=== PATIENT | female | born 1985 | race Caucasian/White ===

== ENCOUNTER → 2017-03-28 | Outpatient (CLI) | payer MEDICAID ==
[~2017-03-28] MED LIST: MOTR200T44 PO; PERCOCET PO
== END ==
LOC: M OUTALCOH 07:59
PROVIDERS: ATTEND Psychiatry & Neurology Psychiatry
DX: Z03.89 Encounter for observation for other suspected diseases and conditions ruled out (principal)

== ENCOUNTER → 2017-09-03 | Outpatient (REF) | payer MEDICAID ==
[2017-09-03 17:36] LABS: INFLUENZA A AMPLIFICATION NEGATIVE (NEGATIVE); INFLUENZA B AMPLIFICATION NEGATIVE (NEGATIVE); RSV AMPLIFICATION NEGATIVE (NEGATIVE)
== END ==
LOC: M LAB REF 16:44
DX: J11.1 Influenza due to unidentified influenza virus with other respiratory manifestations (principal)

== ENCOUNTER → 2019-09-29 | Outpatient (REF) | payer MEDICAID, OTHER | LOC: M LAB REF 09:30 | PROVIDERS: ATTEND Physician Assistant | DX: J02.9 Acute pharyngitis, unspecified (principal) ==

== ENCOUNTER → 2021-09-28 | Outpatient (REF) | payer OTHER | LOC: M PLALAB 08:01 | PROVIDERS: ATTEND Advanced Practice Midwife | DX: Z01.419 Encounter for gynecological examination (general) (routine) without abnormal findings (principal); Z12.4 Encounter for screening for malignant neoplasm of cervix ==

== ENCOUNTER 2023-02-03 10:23 | Inpatient (IN) | payer OTHER ==
[~2023-02-03] VITALS: Ht 172.7 cm; Wt 115.9 kg
[~2023-02-03 10:23] MED LIST changes: +AMOX500C PO
[2023-02-03] MEDS ORDERED: NS 1,000 ML IV ONE (11:55)
[2023-02-03] MEDS ORDERED: dexAMETHasone 20MG/5ML VIAL IV ONE (11:55)
[2023-02-03] MEDS ORDERED: ACETAMINOPHEN 1000MG 100ML IV BAG IV ONE (11:55)
[2023-02-03 12:55] LABS: BASO % 0.3 % (0.0-1.0); EOS % 0.4 % (0.0-3.0); HEMATOCRIT 37.1 % (36.0-47.0); HEMOGLOBIN 12.4 g/dl (12.0-15.5); LYMPH # 1.1 10^3/uL (1.5-5.0); MEAN CORPUSCULAR HEMOGLOBIN 30.2 pg (27.0-33.0); MEAN CORPUSCULAR HGB CONC 33.4 g/dl (32.0-36.5); MEAN CORPUSCULAR VOLUME 90.3 fl (80.0-96.0); MONO # 0.7 10^3/uL (0.0-0.8); MONO % 6.8 % (2.0-8.0); NEUTROPHILS # 8.1 10^3/uL (1.5-8.5); NEUTROPHILS % 81.1 % (36.0-66.0); PLATELET COUNT, AUTOMATED 242 10^3/uL (150-450); RED BLOOD COUNT 4.11 10^6/uL (4.00-5.40)
[2023-02-03 13:07] LABS: ERYTHROCYTE SEDIMENTATION RATE 128 mm/hr (0-20)
[2023-02-03 13:17] LABS: BLOOD UREA NITROGEN 7 MG/DL (9-23); CALCIUM LEVEL 8.1 MG/DL (8.5-10.1); CARBON DIOXIDE LEVEL 25 MMOL/L (20-31); CHLORIDE LEVEL 101 MMOL/L (98-107); CREATININE FOR GFR 0.46 MG/DL (0.55-1.30); GLOMERULAR FILTRATION RATE > 60.0 (>60); GLUCOSE, FASTING 92 MG/DL (60-100); POTASSIUM SERUM 3.5 MMOL/L (3.5-5.1); SODIUM LEVEL 136 MMOL/L (136-145)
[2023-02-03 13:19] LABS: HCG, SERUM QUALITATIVE NEGATIVE (NEGATIVE)
[2023-02-03] MEDS ORDERED: ISOVUE-370 76% 100ML VIAL As Ordered ONE (13:28)
[2023-02-03] MEDS ORDERED: AMPICILLIN SOD/SULBACTAM SOD 3 GM in D5W MINI-BAG PLUS 100 ML IV ONE (15:00)
[2023-02-03] MEDS ORDERED: MED REC IN PROGRESS XX SCH (15:05)
[2023-02-03] MEDS ORDERED: BUPR-71 PO (15:15)
[2023-02-03] MEDS ORDERED: HOME MED LIST COMPLETE! XX SCH (15:20)
[2023-02-03] MEDS ORDERED: ACETAMINOPHEN TAB 650MG DOSE (2X325MG) PO PRN (15:25)
[2023-02-03 19:43] LABS: PROCALCITONIN 0.21 ng/ml
[2023-02-03 20:00] VITALS: BP 140/88; TEMP 97.6; O2SAT 98
[2023-02-03] MEDS ORDERED: dexAMETHasone 20MG/5ML VIAL IV SCH (20:00)
[2023-02-03] MEDS: PIPERACILLIN/TAZOBACTAM SOD 3.375 GM in D5W MINI-BAG PLUS 50 ML IV SCH (21:17)
[2023-02-03] MEDS: CHLORHEXIDINE GLUCONATE 0.12 % 15ML UDC (PERIDEX ORAL RINSE) MT SCH (21:17)
[2023-02-03] MEDS: NS 1,000 ML IV SCH (21:17)
[2023-02-04 00:24] VITALS: BP 129/80; TEMP 97.5; O2SAT 96
[2023-02-04] MEDS: PIPERACILLIN/TAZOBACTAM SOD 3.375 GM in D5W MINI-BAG PLUS 50 ML IV SCH ×4 (03:58→19:51)
[2023-02-04 04:35] VITALS: BP 116/76; TEMP 97.3; O2SAT 97
[2023-02-04 05:53] LABS: HEMATOCRIT 37.3 % (36.0-47.0); HEMOGLOBIN 12.3 g/dl (12.0-15.5); MEAN CORPUSCULAR HEMOGLOBIN 30.1 pg (27.0-33.0); MEAN CORPUSCULAR VOLUME 91.2 fl (80.0-96.0); PLATELET COUNT, AUTOMATED 280 10^3/uL (150-450); RED BLOOD COUNT 4.09 10^6/uL (4.00-5.40); WHITE BLOOD COUNT 8.1 10^3/uL (4.0-10.0)
[2023-02-04 06:24] LABS: BLOOD UREA NITROGEN 12 MG/DL (9-23); CARBON DIOXIDE LEVEL 24 MMOL/L (20-31); CHLORIDE LEVEL 105 MMOL/L (98-107); CREATININE FOR GFR 0.48 MG/DL (0.55-1.30); GLOMERULAR FILTRATION RATE > 60.0 (>60); GLUCOSE, FASTING 151 MG/DL (60-100); SODIUM LEVEL 139 MMOL/L (136-145)
[2023-02-04 08:00] VITALS: BP 128/75; TEMP 98.6; O2SAT 95
[2023-02-04] MEDS: CHLORHEXIDINE GLUCONATE 0.12 % 15ML UDC (PERIDEX ORAL RINSE) MT SCH ×2 (09:41→19:51)
[2023-02-04 12:00] VITALS: BP 156/98; TEMP 97.6; O2SAT 98
[2023-02-04] MEDS: buPROPion **SR TABLET** (ZYBAN) 150MG PO SCH (12:00)
[2023-02-04] MEDS: NS 1,000 ML IV SCH ×2 (15:54)
[2023-02-04 20:17] VITALS: BP 152/92; TEMP 98; O2SAT 98
[2023-02-04 23:30] VITALS: BP 146/93; TEMP 97.6; O2SAT 97
[2023-02-05] MEDS: PIPERACILLIN/TAZOBACTAM SOD 3.375 GM in D5W MINI-BAG PLUS 50 ML IV SCH ×2 (03:24→08:36)
[2023-02-05 04:00] VITALS: BP 137/82; TEMP 97.7; O2SAT 96
[2023-02-05 06:15] LABS: BASO % 0.1 % (0.0-1.0); HEMOGLOBIN 11.4 g/dl (12.0-15.5); LYMPH # 1.2 10^3/uL (1.5-5.0); LYMPH % 11.2 % (24.0-44.0); MEAN CORPUSCULAR HEMOGLOBIN 30.6 pg (27.0-33.0); MEAN CORPUSCULAR HGB CONC 33.5 g/dl (32.0-36.5); MEAN CORPUSCULAR VOLUME 91.4 fl (80.0-96.0); MONO # 0.5 10^3/uL (0.0-0.8); MONO % 4.3 % (2.0-8.0); NEUTROPHILS # 8.7 10^3/uL (1.5-8.5); NEUTROPHILS % 83.5 % (36.0-66.0); PLATELET COUNT, AUTOMATED 293 10^3/uL (150-450); RED BLOOD COUNT 3.72 10^6/uL (4.00-5.40); WHITE BLOOD COUNT 10.4 10^3/uL (4.0-10.0)
[2023-02-05 06:38] LABS: BLOOD UREA NITROGEN 10 MG/DL (9-23); CALCIUM LEVEL 8.1 MG/DL (8.5-10.1); CARBON DIOXIDE LEVEL 28 MMOL/L (20-31); CHLORIDE LEVEL 107 MMOL/L (98-107); CREATININE FOR GFR 0.53 MG/DL (0.55-1.30); GLOMERULAR FILTRATION RATE > 60.0 (>60); GLUCOSE, FASTING 147 MG/DL (60-100); POTASSIUM SERUM 3.7 MMOL/L (3.5-5.1); SODIUM LEVEL 142 MMOL/L (136-145)
[2023-02-05 08:00] VITALS: BP 142/87; TEMP 98.4; O2SAT 98
[2023-02-05] MEDS: buPROPion **SR TABLET** (ZYBAN) 150MG PO SCH (08:39)
[2023-02-05] MEDS: CHLORHEXIDINE GLUCONATE 0.12 % 15ML UDC (PERIDEX ORAL RINSE) MT SCH (08:39)
[2023-02-05] MEDS ORDERED: PRED20TA PO (10:45)
[2023-02-05] MEDS ORDERED: AMOX875T2 PO (10:45)
== END 2023-02-05 11:22 | disposition home or self-care (01) | DRG 113 ==
LOC: M ED 10:23 → M PED 15:23 → M ED INP 15:23 → ENRESERV 17:30 → M PCU 19:33 → M PED 02-04 22:34
PROVIDERS: ADMIT Internal Medicine; ATTEND Internal Medicine
DX: J03.90 Acute tonsillitis, unspecified (principal); F32.A Depression, unspecified; K11.21 Acute sialoadenitis; F41.9 Anxiety disorder, unspecified; Z79.2 Long term (current) use of antibiotics; Z79.899 Other long term (current) drug therapy; Z20.822 Contact with and (suspected) exposure to COVID-19

== ENCOUNTER 2025-04-27 20:25 | Emergency (ER) | payer OTHER ==
[~2025-04-27] VITALS: Ht 172.7 cm; Wt 122.7 kg
[~2025-04-27 20:25] MED LIST changes: +AMOX875T2 PO; +BUPR-71 PO; +PRED20TA PO
[2025-04-27 20:35] VITALS: TEMP 98.7
[2025-04-27] MEDS: MORPHINE 4 MG/ML 1 ML VIAL IV ONE (21:03)
[2025-04-27] MEDS: PERCOCET 5MG/325MG TAB PO ONE (21:35)
[2025-04-27 22:00] VITALS: BP 132/78; O2SAT 96
[2025-04-27] MEDS ORDERED: PERC5TAB12 PO (23:22)
[2025-04-27] MEDS: MORPHINE 2 MG/ML 1 ML VIAL IV ONE (23:28)
[2025-04-27] MEDS: OXYCODONE/APAP 5MG/325MG(HOME DOSE PACK) PO ONE (23:28)
[2025-04-28] MEDS ORDERED: FLUO40CA PO (12:00)
[2025-04-28] MEDS ORDERED: CHLO125TA PO (12:00)
[2025-04-28] MEDS ORDERED: LISI5TAB11 PO (12:00)
[2025-04-28] MEDS ORDERED: ALPR0.25 PO (12:00)
== END 2025-04-27 23:48 | disposition home or self-care (01) ==
LOC: M ED 20:25
DX: S52.502A Unspecified fracture of the lower end of left radius, initial encounter for closed fracture (principal); W51.XXXA Accidental striking against or bumped into by another person, initial encounter; Y92.9 Unspecified place or not applicable; Y93.9 Activity, unspecified; Y99.9 Unspecified external cause status; F32.9 Major depressive disorder, single episode, unspecified

== ENCOUNTER 2025-04-29 07:46 | Day surgery (SDC) | payer OTHER ==
[~2025-04-29] VITALS: Ht 172.7 cm; Wt 118.8 kg
[~2025-04-29 07:46] MED LIST changes: +ALPR0.25 PO; +CHLO125TA PO; +FLUO40CA PO; +LISI5TAB11 PO; +PERC5TAB12 PO
[2025-04-29] MEDS ORDERED: LR 1,000 ML IV SCH ×2 (08:15→10:50)
[2025-04-29] MEDS ORDERED: ONDANSETRON 4MG 2ML VIAL As Ordered ONE (08:18)
[2025-04-29] MEDS ORDERED: dexAMETHasone 4 MG/ML 1 ML VIAL As Ordered ONE (08:18)
[2025-04-29] MEDS ORDERED: LIDOCAINE 2% 100 MG/5 ML SDV (FOR ANES.) As Ordered ONE (08:18)
[2025-04-29] MEDS ORDERED: MIDAZOLAM INJ 2 MG/2 ML VIAL As Ordered ONE (08:23)
[2025-04-29] MEDS: MIDAZOLAM INJ 2 MG/2 ML VIAL IV PRN (09:27)
[2025-04-29] MEDS: LIDOCAINE 1% SDV 5 ML VIAL PN ONE (09:39)
[2025-04-29] MEDS: ROPIvacaine 0.5% 30ML VIAL PN ONE (09:40)
[2025-04-29] MEDS ORDERED: OXYC1TAB23 PO (09:49)
[2025-04-29] MEDS ORDERED: ACETAMINOPHEN 1000MG/100ML IV BAG As Ordered ONE (10:03)
[2025-04-29] MEDS ORDERED: HYDROMORPHONE HCL 0.5 MG/0.5 ML SYRINGE IV PRN (10:50)
[2025-04-29] MEDS ORDERED: ONDANSETRON 4MG 2ML VIAL IV PRN (10:50)
[2025-04-29 11:50] VITALS: BP 150/82; TEMP 98.1; O2SAT 95
== END 2025-04-29 12:19 | disposition home or self-care (01) ==
LOC: M SDC 07:46
PROVIDERS: ATTEND Orthopaedic Surgery
DX: S52.552A Other extraarticular fracture of lower end of left radius, initial encounter for closed fracture (principal); W19.XXXA Unspecified fall, initial encounter; I10 Essential (primary) hypertension; F41.9 Anxiety disorder, unspecified; F32.9 Major depressive disorder, single episode, unspecified; Z79.899 Other long term (current) drug therapy
CPT/HCPCS: 25607; 76000; 81025; C1713; J0131; J0688; J1100; J2250; J2405; J2795; J3010

== ENCOUNTER → 2025-05-05 | Outpatient (CLI) | payer OTHER ==
[~2025-05-05] MED LIST changes: +OXYC1TAB23 PO
== END ==
LOC: M SOG 07:17
PROVIDERS: ATTEND Physician Assistant
DX: S52.552D Other extraarticular fracture of lower end of left radius, subsequent encounter for closed fracture with routine healing (principal)

== ENCOUNTER → 2025-06-09 | Outpatient (CLI) | payer OTHER | LOC: M SOG 07:34 | PROVIDERS: ATTEND Physician Assistant | DX: S52.552A Other extraarticular fracture of lower end of left radius, initial encounter for closed fracture (principal) ==

== ENCOUNTER → 2025-06-21 | Outpatient (CLI) | payer OTHER | LOC: M SOG 07:33 | PROVIDERS: ATTEND Physician Assistant | DX: S52.552A Other extraarticular fracture of lower end of left radius, initial encounter for closed fracture (principal); W18.30XA Fall on same level, unspecified, initial encounter; Y92.009 Unspecified place in unspecified non-institutional (private) residence as the place of occurrence of the external cause ==